=== PATIENT | male | born 1965 | race Caucasian/White ===

== ENCOUNTER 2016-07-05 10:31 | Emergency (ER) | payer MEDICAID ==
[~2016-07-05] VITALS: Ht 182.9 cm; Wt 74.8 kg
[~2016-07-05 10:31] MED LIST: VALS80TA2 PO
[2016-07-05 10:46] VITALS: BP 113/62; PULSE 88; RESP 16; TEMP 97.8; O2SAT 99
--- NOTE | 2016-07-05 10:46 | NUR ---
Pt report received from Paul RN. Pt c/o Right testicular pain x 3 days, worse today. Pt denies urinary urinary problems, denies discharge from penis.
--- NOTE | 2016-07-05 10:49 | NUR ---
AMBULATED TO BED 3
--- NOTE | 2016-07-05 10:55 | NUR ---
Dr. Medrano at bedside to assess pt.
[2016-07-05] MEDS ORDERED: MORPHINE 4 MG/ML INJ. SYRINGE IVP ONE (11:15)
[2016-07-05] MEDS ORDERED: DIPHENHYDRAMINE INJ 50 MG/ML VIAL IVP ONE (11:15)
[2016-07-05] MEDS ORDERED: PIPERACILLIN/TAZO 3.38 GM in NS 50 ML IV ONE (11:15)
--- NOTE | 2016-07-05 11:35 | NUR ---
Back from radiology via wheelchair. Tolerated well
[2016-07-05] MEDS ORDERED: PIPERACILLIN/TAZOBACTAM 3.375 GM/VIAL (ZOSYN) IV ONE (11:44)
[2016-07-05 12:03] LABS: BASOPHILS % (AUTO) 0.2 % (0.0-2.0); EOSINOPHILS # (AUTO) 0.1 K/uL (0.0-0.4); HEMOGLOBIN 10.9 g/dL (14.0-18.0); LYMPHOCYTES # (AUTO) 1.9 K/uL (1.0-5.5); LYMPHOCYTES % (AUTO) 16.3 % (20.5-51.5); MEAN CORPUSCULAR HEMOGLOBIN 34 pg (27-31); MEAN CORPUSCULAR HGB CONC 34 % (32-36); MEAN CORPUSCULAR VOLUME 100 fL (79.0-98.0); MONOCYTES # (AUTO) 1.3 K/uL (0.0-1.0); MONOCYTES % (AUTO) 11.2 % (1.7-9.3); NEUTROPHILS # (AUTO) 8.6 K/uL (1.8-7.7); NEUTROPHILS % (AUTO) 71.3 % (40.0-70.0); PLATELET COUNT (AUTO) 369 K/uL (130-430); RED BLOOD CELL COUNT(AUTO) 3.19 MIL/uL (4.2-6.2); RED CELL DISTRIBUTION WIDTH 13.6 % (9.0-15.0); WHITE BLOOD COUNT (AUTO) 11.9 K/uL (4.8-10.8)
[2016-07-05 12:04] LABS: CALCIUM 8.6 mg/dL (8.4-11.0); CREATININE 1.03 mg/dL (0.55-1.30); POTASSIUM 4.5 mmol/L (3.5-5.1)
[2016-07-05 12:05] LABS: PROTHROMBIN TIME 10.9 SECS (9.5-12.5)
[2016-07-05 12:09] LABS: ALBUMIN 2.6 g/dL (3.4-4.8); TOTAL BILIRUBIN 0.7 mg/dL (0.0-1.0); TOTAL PROTEIN, SERUM 8.5 g/dL (6.4-8.3)
[2016-07-05 12:25] VITALS: BP 142/82; PULSE 88; RESP 20; TEMP 98.1
--- NOTE | 2016-07-05 12:25 | NUR ---
Patient given written and verbal discharge instructions and verbalizes understanding. ER MD discussed with patient the results and treatment provided. Patient in stable condition. ID arm band removed. IV catheter removed intact and dressing applied, no active bleeding. Rx of Dennison and Levaquin given. Patient educated on pain management and to follow up with PMD. Pain Scale 2/10. Opportunity for questions provided and answered.
== END 2016-07-05 12:25 | disposition home or self-care (01) ==
LOC: SED 10:31
DX: N43.3 Hydrocele, unspecified (principal); N45.1 Epididymitis; E11.9 Type 2 diabetes mellitus without complications; I10 Essential (primary) hypertension
CPT/HCPCS: 36415; 76870; 80053; 83605; 85025; 85610; 87040; 96365; 96375; 99285; J1200; J2270; J2543

== ENCOUNTER 2016-10-22 08:27 | Emergency (ER) | payer MEDICAID ==
[~2016-10-22] VITALS: Ht 182.9 cm; Wt 77.1 kg
[2016-10-22 08:32] VITALS: BP 111/64; PULSE 101; RESP 16; TEMP 98; O2SAT 97
--- NOTE | 2016-10-22 08:35 | NUR ---
Patient to ER bed 5 to gown for evaluation. Side rails up. Report given to BALTA.
--- NOTE | 2016-10-22 08:39 | NUR ---
Pt states having pain in R lower rib area since sunday10/20/16. Pt states having pain when turning upper body left and right, states pain on light palpation. Pain scale 8/10. Pt states he thinks "pain is due to trying to lift a garden tool" on sunday. No redness, no deformities noted. Pt denies any other complaints. Addendum: 10/22/16 at 1011 by MERCEDES Denies any trauma/injury.
--- NOTE | 2016-10-22 08:40 | NUR ---
ER Dr. Hernandez at bedside examining patient.
--- NOTE | 2016-10-22 08:41 | NUR ---
Pt to RAD dept. ambulatory with steady gait.
[2016-10-22] MEDS ORDERED: KETOROLAC TROMETHAMINE 60 MG/2 ML VIAL IM ONE (09:00)
--- NOTE | 2016-10-22 09:12 | NUR ---
CHRISTIANE wrap bandage to R lower rib area per MD order. Pt tolerated well. Addendum: 10/22/16 at 1028 by [email or web address] upper/mid abdominal area surrounding ribs
[2016-10-22 09:24] VITALS: BP 113/65; PULSE 91; RESP 16; TEMP 97.8; O2SAT 98
--- NOTE | 2016-10-22 09:24 | NUR ---
Patient given written and verbal discharge instructions and verbalizes understanding. ER MD discussed with patient the results and treatment provided. Patient in stable condition. ID arm band removed. Rx of ibuprofen, flexeril given. Patient educated on pain management and to follow up with PMD. Pain Scale 2/10. Opportunity for questions provided and answered.
== END 2016-10-22 09:24 | disposition home or self-care (01) ==
LOC: SED 08:27
DX: M62.838 Other muscle spasm (principal); E11.9 Type 2 diabetes mellitus without complications; I10 Essential (primary) hypertension
CPT/HCPCS: 71100; 96372; 99284; J1885

== ENCOUNTER 2020-12-06 16:08 | Emergency (ER) | payer MEDICAID ==
[~2020-12-06] VITALS: Ht 182.9 cm; Wt 70.3 kg
[2020-12-06 16:08] VITALS: BP_SYST 132
[2020-12-06] MEDS ORDERED: LIDOCAINE 1%, 20 ML MDV 20 ML ONE (16:36)
[2020-12-06] MEDS ORDERED: DIPH-TET-PERTUS Vaccine 0.5 ML VIAL (ADACEL) I.M. ONE (16:45)
[2020-12-06] MEDS ORDERED: LIDOCAINE 1% 10 MG/ML, 20 ML MDV INJ ONE (16:45)
[2020-12-06] MEDS ORDERED: CEPH500C2 PO (16:50)
[2020-12-06] MEDS ORDERED: TRAM50TA2 PO (16:50)
[2020-12-06] MEDS ORDERED: SULF1TAB48 PO (16:50)
[2020-12-06] MEDS ORDERED: HYDROcodone/ACETAMIN 5-325 MG TAB (NORCO/ VICODIN) PO ONE (17:00)
[2020-12-06 17:01] VITALS: BP_SYST 132
== END 2020-12-06 17:01 | disposition home or self-care (01) ==
LOC: SED 16:08
DX: L02.415 Cutaneous abscess of right lower limb (principal); I10 Essential (primary) hypertension; E11.9 Type 2 diabetes mellitus without complications; Z79.899 Other long term (current) drug therapy
CPT/HCPCS: 10060; 90471; 90715; 99283; J2001

== ENCOUNTER 2021-02-06 20:39 | Emergency (ER) | payer MEDICAID ==
[~2021-02-06] VITALS: Ht 182.9 cm; Wt 63.5 kg
[~2021-02-06 20:39] MED LIST changes: +CEPH500C2 PO; +SULF1TAB48 PO; +TRAM50TA2 PO
--- NOTE | 2021-02-06 21:30 | NUR ---
Patient to H1 to gown for evaluation. Side rails up..
[2021-02-06 21:40] VITALS: BP_SYST 122
--- NOTE | 2021-02-06 21:45 | NUR ---
pt arrives from home w/ an abcess to the right thigh x 1 month, pt has been experiencing increased pain and swelling to the area.
--- NOTE | 2021-02-06 21:50 | NUR ---
ER at bedside examining patient.
[2021-02-06 21:57] VITALS: BP_SYST 122
--- NOTE | 2021-02-06 22:00 | NUR ---
PT MOVED TO ER 2
--- NOTE | 2021-02-06 22:40 | NUR ---
Patient given written and verbal discharge instructions and verbalizes understanding. ER MD discussed with patient the results and treatment provided. Patient in stable condition. ID arm band removed. Rx of keflex, ibuprofen, bactrim given. Patient educated on pain management and to follow up with PMD. Pain Scale 2. Opportunity for questions provided and answered. Medication side effect fact sheet provided But patient had left ER w/o ACI sheet.
[2021-02-06] MEDS ORDERED: SULF1TAB48 PO (22:47)
[2021-02-06] MEDS ORDERED: IBUP-1969 PO (22:47)
[2021-02-06] MEDS ORDERED: CEPH250C PO (22:47)
== END 2021-02-06 22:40 | disposition home or self-care (01) ==
LOC: SED 20:39
DX: L02.415 Cutaneous abscess of right lower limb (principal); I10 Essential (primary) hypertension; E11.9 Type 2 diabetes mellitus without complications; Z79.899 Other long term (current) drug therapy
CPT/HCPCS: 99283

== ENCOUNTER 2021-08-08 16:45 | Emergency (ER) | payer MEDICAID ==
[~2021-08-08] VITALS: Ht 182.9 cm; Wt 70.3 kg
[~2021-08-08 16:45] MED LIST changes: +CEPH-548 PO; +CEPH250C PO; -CEPH500C2 PO; +IBUP-1969 PO
[2021-08-08 17:31] VITALS: BP_SYST 135
--- NOTE | 2021-08-08 21:00 | NUR ---
CALL PT NAME IN THE WR.NO ANSWER.
--- NOTE | 2021-08-08 21:05 | NUR ---
CALL PT NAME IN THE WR.NO ANSWER.
--- NOTE | 2021-08-08 21:10 | NUR ---
CALL PT NAME IN THE WR.NO ANSWER.
== END 2021-08-08 21:10 | disposition left against medical advice (07) ==
LOC: SED 16:45
DX: M79.606 Pain in leg, unspecified (principal); Z53.21 Procedure and treatment not carried out due to patient leaving prior to being seen by health care provider